=== PATIENT | male | born 1960 | race Caucasian/White ===

== ENCOUNTER 2017-05-07 08:59 | Inpatient (IN) | payer OTHER ==
[2017-05-07 11:53] VITALS: BMI 22.3
--- NOTE | 2017-05-07 13:21 | HP ---
CIWA Score - CIWA Score Nausea/Vomitin Muscle Tremors: 3 Anxiety: 3 Agitation: 3 Paroxysmal Sweats: 2 Orientation: 0-Oriented Tacttile Disturbances: 2-Mild Itch/Numbness/Burn Auditory Disturbances: 2-Mild Harshness/Frighten Visual Disturbances: 2-Mild Sensitivity Headache: 2-Mild CIWA-Ar Total Score: 22 Admission ROS BHS - HPI Chief Complaint: i need help to stop drinking alcohol Allergies/Adverse Reactions: Allergies Allergy/AdvReac Type Severity Reaction Status Date / Time No Known Allergies Allergy Verified 05/07/17 12:48 History of Present Illness: this 56 years old male with alcohol dependence,seeking help to stop drinking, never been in detox before syncope alcohol related nicotine dependence no significant period of sobreity Exam Limitations: No Limitations - Ebola screening Have you been sick,other than usual withdrawal symptoms: No - Review of Systems Constitutional: Loss of Appetite, Malaise, Night Sweats, Changes in sleep, Weakness, Unintentional Wgt. Loss EENT: reports: Tearing, Nose Congestion Respiratory: reports: No Symptoms reported Cardiac: reports: Palpitations GI: reports: Diarrhea, Nausea, Vomiting, Abdominal cramping : reports: No Symptoms Reported Musculoskeletal: reports: Back Pain, Muscle Pain Integumentary: reports: Dryness Neuro: reports: Headache, Tremors Endocrine: reports: No Symptoms Reported Hematology: reports: No Symptoms Reported Psychiatric: reports: Anxious (insomnia), Depressed Patient History - Patient Medical History Hx Anemia: No Hx Asthma: No Hx Chronic Obstructive Pulmonary Disease (COPD): No Hx Cancer: No Hx Cardiac Disorders: No Hx Congestive Heart Failure: No Hx Hypertension: Yes (no med) Hx Hypercholesterolemia: No Hx Pacemaker: No HX Cerebrovascular Accident: No Hx Seizures: No Hx Dementia: No Hx Diabetes: No Hx Gastrointestinal Disorders: Yes (acid reflux) Hx Liver Disease: No Hx Genitourinary Disorders: No Hx Sexually Transmitted Disorders: No Hx Renal Disease (ESRD): No Hx Thyroid Disease: No Hx Human Immunodeficiency Virus (HIV): No (never been tested) Hx Hepatitis C: No Hx Depression: Yes (anxiety) Hx Suicide Attempt: No Hx Bipolar Disorder: No Hx Schizophrenia: No Other Medical History: no suicidal,no homicidal - Patient Surgical History Past Surgical History: No Hx Neurologic Surgery: No Hx Cataract Extraction: No Hx Cardiac Surgery: No Hx Lung Surgery: No Hx Breast Surgery: No Hx Breast Biopsy: No Hx Abdominal Surgery: No Hx Appendectomy: No Hx Cholecystectomy: No Hx Genitourinary Surgery: No Hx Section: No Hx Orthopedic Surgery: No Anesthesia Reaction: No - PPD History Previous Implant?: Yes Documented Results: Negative w/o proof Implanted On Prior [facility] Admission?: No PPD to be Administered?: Yes - Smoking Cessation Smoking history: Current every day smoker Have you smoked in the past 12 months: Yes Aproximately how many cigarettes per day: 3 Cigars Per Day: 1 Hx Chewing Tobacco Use: No Initiated information on smoking cessation: Yes 'Breaking Loose' booklet given: 05/07/17 - Substance & Tx. History Hx Alcohol Use: Yes Hx Substance Use: No Substance Use Type: Alcohol Hx Substance Use Treatment: No - Substances Abused Alcohol-beer Route: Oral Frequency: Daily Amount used: 1-6 pk. Age of first use: 16 Date of Last Use: 05/05/17 Family Disease History - Family Disease History Family History: Denies Admission Physical Exam [facility] - Vital Signs Vital Signs: Vital Signs - 24 hr 05/07/17 11:51 Temperature 97.4 F L Pulse Rate 109 H Respiratory 18 Rate Blood Pressure 142/92 - Physical General Appearance: Yes: Moderate Distress, Tremorous, Irritable, Sweating, Anxious HEENTM: Yes: Hearing grossly Normal, Normal ENT Inspection, RICA Respiratory: Yes: Lungs Clear, Normal Breath Sounds, No Respiratory Distress Neck: Yes: Within Normal Limits, Supple, Trachea in good position Breast: Yes: Within Normal Limits Cardiology: Yes: Tachycardia Abdominal: Yes: Within Normal Limits, Normal Bowel Sounds, Non Tender, Flat, Soft Genitourinary: Yes: Within Normal Limits Back: Yes: Muscle Spasm Musculoskeletal: Yes: Back pain, Muscle Pain Extremities: Yes: Normal Inspection, Normal Range of Motion, Tremors 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, Fully Oriented, Alert, Motor Strength 5/5 Integumentary: Yes: Dry Lymphatic: Yes: Within Normal Limits - Diagnostic (1) Alcohol dependence with uncomplicated withdrawal Current Visit: Yes Status: Acute (2) Syncope Current Visit: Yes Status: Acute (3) Anxiety and depression Current Visit: Yes Status: Acute (4) Insomnia Current Visit: Yes Status: Acute (5) Nicotine dependence Current Visit: Yes Status: Acute Cleared for Admission [facility] - Detox or Rehab [facility] Level of Care: Medically Managed Detox Regimen/Protocol: Librium [facility] Breath Alcohol Content Breath Alcohol Content: 0 Urine Drug Screen - Results Drug Screen Negative: No Urine Drug Screen Results: SCOTT-Cocaine
[2017-05-07] MEDS ORDERED: guaiFENesin/D-METHORPHAN HB 10 ML UNIT-DOSE CUPS PO PRN (13:31)
[2017-05-07] MEDS ORDERED: IBUPROFEN 400 MG TABLET (FP) PO PRN (13:31)
[2017-05-07] MEDS ORDERED: chlordiazePOXIDE HCL 25 MG CAPSULE PO PRN (13:31)
[2017-05-07] MEDS ORDERED: ACETAMINOPHEN 325 MG TABLET (FP) PO PRN (13:31)
[2017-05-07] MEDS ORDERED: hydrOXYzine PAMOATE 50 MG CAPSULE (FP) PO PRN (13:31)
[2017-05-07] MEDS ORDERED: MENTHOL/PHENOL 1 EACH UD MM PRN (13:31)
[2017-05-07] MEDS ORDERED: MAGNESIUM CITRATE 300 ML BOTTLE PO PRN (13:31)
[2017-05-07] MEDS ORDERED: MAGNESIUM HYDROX 2400MG/30ML ORAL SUSPENSION 30 ML CUP PO PRN (13:31)
[2017-05-07] MEDS ORDERED: LOPERAMIDE HCL 2 MG CAPSULE PO PRN (13:31)
[2017-05-07] MEDS ORDERED: P-EPHED 60MG/TRIPROLIDI 2.5MG TABLET PO PRN (13:31)
[2017-05-07] MEDS ORDERED: MAG HYDROX/AL HYDROX/SIMETH 30 ML UNIT-DOSE CUP PO PRN (13:31)
[2017-05-07] MEDS ORDERED: chlordiazePOXIDE HCL 25 MG CAPSULE PO ONE (14:30)
[2017-05-07] MEDS: chlordiazePOXIDE HCL 25 MG CAPSULE PO SCH ×2 (17:10→22:51)
[2017-05-07 17:55] LABS: URINE APPEARANCE CLEAR; URINE BILIRUBIN NEGATIVE (NEGATIVE); URINE BLOOD NEGATIVE (NEGATIVE); URINE COLOR LTYELLOW; URINE GLUCOSE (UA) NEGATIVE (NEGATIVE); URINE KETONE NEGATIVE (NEGATIVE); URINE LEUK ESTERASE NEGATIVE (NEGATIVE); URINE NITRITE NEGATIVE (NEGATIVE); URINE PROTEIN NEGATIVE (NEGATIVE); URINE UROBILINOGEN NEGATIVE mg/dL (0.2-1.0)
[2017-05-07] MEDS: diphenhydrAMINE HCL 50 MG CAPSULE PO PRN (22:51)
[2017-05-07] MEDS: THIAMINE HCL 100 MG TABLET (FP) PO SCH (22:52)
[2017-05-08] MEDS: chlordiazePOXIDE HCL 25 MG CAPSULE PO SCH ×4 (05:29→22:40)
[2017-05-08] MEDS: PRENATAL VITAMINS W/ FOLIC ACID TABLET (FP) PO SCH (11:02)
[2017-05-08 11:07] LABS: MCH 31.6 pg (25.7-33.7); MCHC 33.8 g/dl (32.0-35.9); MEAN CELL VOLUME 93.5 fl (80-96); MEAN PLT VOLUME 8.6 fl (7.5-11.1); PLATELET COUNT 234 K/MM3 (134-434); RDW 14.4 % (11.9-15.9); WHITE BLOOD COUNT 5.9 K/mm3 (4.0-10.0)
[2017-05-08 11:10] LABS: ALBUMIN 4.5 g/dl (3.4-5.0); ALK PHOS 81 U/L (45-117); ANION GAP 9 (8-16); BILIRUBIN,TOTAL 0.8 mg/dL (0.2-1.0); CALCIUM 10.1 mg/dL (8.5-10.1); CO2 28 mmol/L (21-32); CREATININE 0.8 mg/dL (0.7-1.3); GLUCOSE,RANDOM 85 mg/dL (74-106); SGOT/AST 33 U/L (15-37); SGPT/ALT 26 U/L (12-78); TOT PROT 8.1 g/dl (6.4-8.2)
--- NOTE | 2017-05-08 12:37 | PN ---
[facility] CIWA - CIWA Score Nausea/Vomitin Muscle Tremors: 3 Anxiety: 3 Agitation: 2 Paroxysmal Sweats: 1-Minimal Palms Moist Orientation: 0-Oriented Tacttile Disturbances: 1-Very Mild Itch/Numbness Auditory Disturbances: 1-Very Mild Visual Disturbances: 1-Very Mild Sensitivity Headache: 2-Mild CIWA-Ar Total Score: 17 S Progress Note (SOAP) Subjective: alert,irritable,anxious,interrupted sleep,tremor,pain in the body Objective: 05/08/17 12:35 Vital Signs Temperature 98.2 F 05/08/17 09:49 Pulse Rate 85 05/08/17 09:49 Respiratory Rate 20 05/08/17 09:49 Blood Pressure 110/72 05/08/17 09:49 O2 Sat by Pulse Oximetry (%) ekg nsr Laboratory Last Values WBC 5.9 K/mm3 (4.0-10.0) 05/08/17 06:00 RBC 5.22 M/mm3 (4.00-5.60) 05/08/17 06:00 Hgb 16.5 GM/dL (11.7-16.9) 05/08/17 06:00 Hct 48.8 % (35.4-49) 05/08/17 06:00 MCV 93.5 fl (80-96) 05/08/17 06:00 MCH 31.6 pg (25.7-33.7) 05/08/17 06:00 MCHC 33.8 g/dl (32.0-35.9) 05/08/17 06:00 RDW 14.4 % (11.9-15.9) 05/08/17 06:00 Plt Count 234 K/MM3 (134-434) 05/08/17 06:00 MPV 8.6 fl (7.5-11.1) 05/08/17 06:00 Sodium 137 mmol/L (136-145) 05/08/17 06:00 Potassium 4.7 mmol/L (3.5-5.1) 05/08/17 06:00 Chloride 100 mmol/L (98-107) 05/08/17 06:00 Carbon Dioxide 28 mmol/L (21-32) 05/08/17 06:00 Anion Gap 9 (8-16) 05/08/17 06:00 BUN 7 mg/dL (7-18) 05/08/17 06:00 Creatinine 0.8 mg/dL (0.7-1.3) 05/08/17 06:00 Creat Clearance w eGFR > 60 (>60) 05/08/17 06:00 Random Glucose 85 mg/dL (74-106) 05/08/17 06:00 Calcium 10.1 mg/dL (8.5-10.1) 05/08/17 06:00 Total Bilirubin 0.8 mg/dL (0.2-1.0) 05/08/17 06:00 AST 33 U/L (15-37) 05/08/17 06:00 ALT 26 U/L (12-78) 05/08/17 06:00 Alkaline Phosphatase 81 U/L (45-117) 05/08/17 06:00 Total Protein 8.1 g/dl (6.4-8.2) 05/08/17 06:00 Albumin 4.5 g/dl (3.4-5.0) 05/08/17 06:00 Urine Color Ltyellow 05/07/17 15:00 Urine Appearance Clear 05/07/17 15:00 Urine pH 6.0 (5.0-8.0) 05/07/17 15:00 Ur Specific [place] 1.010 (1.005-1.025) 05/07/17 15:00 Urine Protein Negative (NEGATIVE) 05/07/17 15:00 Urine Glucose (UA) Negative (NEGATIVE) 05/07/17 15:00 Urine Ketones Negative (NEGATIVE) 05/07/17 15:00 Urine Blood Negative (NEGATIVE) 05/07/17 15:00 Urine Nitrite Negative (NEGATIVE) 05/07/17 15:00 Urine Bilirubin Negative (NEGATIVE) 05/07/17 15:00 Urine Urobilinogen Negative mg/dL (0.2-1.0) 05/07/17 15:00 Ur Leukocyte Esterase Negative (NEGATIVE) 05/07/17 15:00 Assessment: 05/08/17 12:37 withdrawal symptom Plan: continue detox
--- NOTE | 2017-05-08 15:10 | CONSULT ---
[facility] Psychiatric Consult - Data Date of interview: 05/08/17 Admission source: [facility] Identifying data: First admission to 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 Substance Abuse History: Alcohol abuse since age 16 (beer).Occasional smoking.Tox screen is positive for cocaine. Medical History: Hypertension and GERD. Psychiatric History: Patient denies. Physical/Sexual Abuse/Trauma History: Patient denies. Additional Comment: Urine Drug Screen Results: SCOTT-Cocaine.Noted. Mental Status Exam - Mental Status Exam Alert and Oriented to: Time, Place, Person Cognitive Function: Good Patient Appearance: Well Groomed Mood: Hopeful, Euthymic Affect: Appropriate, Normal Range Patient Behavior: Fatigued, Appropriate, Cooperative Speech Pattern: Clear, Appropriate Voice Loudness: Normal Thought Process: Intact, Goal Oriented Thought Disorder: Not Present Hallucinations: Denies Suicidal Ideation: Denies Homicidal Ideation: Denies Insight/Judgement: Poor Sleep: Well Appetite: Good Muscle strength/Tone: Normal Gait/Station: Normal Psychiatric Findings - Problem List ([place] 1, 2,3) (1) Alcohol dependence with uncomplicated withdrawal Current Visit: Yes Status: Acute (2) Nicotine dependence Current Visit: Yes Status: Acute (3) Cocaine abuse Current Visit: Yes Status: Acute (4) Insomnia Current Visit: Yes Status: Acute - Initial Treatment Plan Initial Treatment Plan: Psychoeducation.Detoxification.Sleep hygiene is discussed with the patient.Ambien 10 mg po hs prn.Patient made aware of potential for parasomnias.Agreable with this careplan.Observation.
[2017-05-08] MEDS: THIAMINE HCL 100 MG TABLET (FP) PO SCH (22:40)
[2017-05-08] MEDS: diphenhydrAMINE HCL 50 MG CAPSULE PO PRN (22:41)
[2017-05-09] MEDS: chlordiazePOXIDE HCL 25 MG CAPSULE PO SCH ×2 (05:50→10:45)
[2017-05-09] MEDS: PRENATAL VITAMINS W/ FOLIC ACID TABLET (FP) PO SCH (10:45)
--- NOTE | 2017-05-09 11:06 | PN ---
S CIWA - CIWA Score Nausea/Vomitin Muscle Tremors: 3 Anxiety: 3 Agitation: 2 Paroxysmal Sweats: 1-Minimal Palms Moist Orientation: 0-Oriented Tacttile Disturbances: 1-Very Mild Itch/Numbness Auditory Disturbances: 1-Very Mild Visual Disturbances: 1-Very Mild Sensitivity Headache: 2-Mild CIWA-Ar Total Score: 17 BHS COWS - Scale Resting Pulse: 0= [place] 80 or Below Sweatin= Chills/Flushing Restless Observation: 3= Extraneous Movement Pupil Size: 1= Pupils >than Normal Bone or Joint Aches: 2= Severe Diffuse Aches Runny Nose/ Eye Tearin= Runny Nose/Eyes GI Upset > 30mins: 2= Nausea/Diarrhea Tremor Observation of Outstretched Hands: 2= Slight Tremor Visible Yawning Observation: 1= 1-2x During Session Anxiety or Irritability: 2=Irritable/Anxious Goose Flesh Skin: 0=Smooth Skin COWS Score: 16 S Progress Note (SOAP) Subjective: ALERT,IRRITABLE,ANXIOUS,INTERRUPTED SLEEP,PAIN IN THE BODY Objective: 05/09/17 11:05 Vital Signs Temperature 98.1 F 05/09/17 10:00 Pulse Rate 76 05/09/17 10:00 Respiratory Rate 18 05/09/17 10:00 Blood Pressure 107/79 05/09/17 10:00 O2 Sat by Pulse Oximetry (%) Laboratory Last Values WBC 5.9 K/mm3 (4.0-10.0) 05/08/17 06:00 RBC 5.22 M/mm3 (4.00-5.60) 05/08/17 06:00 Hgb 16.5 GM/dL (11.7-16.9) 05/08/17 06:00 Hct 48.8 % (35.4-49) 05/08/17 06:00 MCV 93.5 fl (80-96) 05/08/17 06:00 MCH 31.6 pg (25.7-33.7) 05/08/17 06:00 MCHC 33.8 g/dl (32.0-35.9) 05/08/17 06:00 RDW 14.4 % (11.9-15.9) 05/08/17 06:00 Plt Count 234 K/MM3 (134-434) 05/08/17 06:00 MPV 8.6 fl (7.5-11.1) 05/08/17 06:00 Sodium 137 mmol/L (136-145) 05/08/17 06:00 Potassium 4.7 mmol/L (3.5-5.1) 05/08/17 06:00 Chloride 100 mmol/L (98-107) 05/08/17 06:00 Carbon Dioxide 28 mmol/L (21-32) 05/08/17 06:00 Anion Gap 9 (8-16) 05/08/17 06:00 BUN 7 mg/dL (7-18) 05/08/17 06:00 Creatinine 0.8 mg/dL (0.7-1.3) 05/08/17 06:00 Creat Clearance w eGFR > 60 (>60) 05/08/17 06:00 Random Glucose 85 mg/dL (74-106) 05/08/17 06:00 Calcium 10.1 mg/dL (8.5-10.1) 05/08/17 06:00 Total Bilirubin 0.8 mg/dL (0.2-1.0) 05/08/17 06:00 AST 33 U/L (15-37) 05/08/17 06:00 ALT 26 U/L (12-78) 05/08/17 06:00 Alkaline Phosphatase 81 U/L (45-117) 05/08/17 06:00 Total Protein 8.1 g/dl (6.4-8.2) 05/08/17 06:00 Albumin 4.5 g/dl (3.4-5.0) 05/08/17 06:00 Urine Color Ltyellow 05/07/17 15:00 Urine Appearance Clear 05/07/17 15:00 Urine pH 6.0 (5.0-8.0) 05/07/17 15:00 Ur Specific [place] 1.010 (1.005-1.025) 05/07/17 15:00 Urine Protein Negative (NEGATIVE) 05/07/17 15:00 Urine Glucose (UA) Negative (NEGATIVE) 05/07/17 15:00 Urine Ketones Negative (NEGATIVE) 05/07/17 15:00 Urine Blood Negative (NEGATIVE) 05/07/17 15:00 Urine Nitrite Negative (NEGATIVE) 05/07/17 15:00 Urine Bilirubin Negative (NEGATIVE) 05/07/17 15:00 Urine Urobilinogen Negative mg/dL (0.2-1.0) 05/07/17 15:00 Ur Leukocyte Esterase Negative (NEGATIVE) 05/07/17 15:00 RPR Titer Nonreactive (NONREACTIVE) 05/08/17 06:00 Assessment: 05/09/17 11:06 WITHDRAWAL SYMPTOM Plan: CONTINUE DETOX
[2017-05-09] MEDS: chlordiazePOXIDE 5 MG CAPSULE PO SCH ×2 (17:15→22:28)
[2017-05-09] MEDS: THIAMINE HCL 100 MG TABLET (FP) PO SCH (22:28)
[2017-05-09] MEDS: ZOLPIDEM TARTRATE 5 MG TABLET PO PRN (22:28)
[2017-05-10] MEDS: chlordiazePOXIDE 5 MG CAPSULE PO SCH ×2 (05:56→11:18)
--- NOTE | 2017-05-10 10:41 | PN ---
S Progress Note (SOAP) Subjective: ALERT,IRRITABLE,ANXIOUS,INTERRUPTED SLEEP Objective: 05/10/17 10:39 Vital Signs Temperature 98.6 F 05/10/17 10:00 Pulse Rate 81 05/10/17 10:00 Respiratory Rate 16 05/10/17 10:00 Blood Pressure 114/79 05/10/17 10:00 O2 Sat by Pulse Oximetry (%) Assessment: 05/10/17 10:40 WITHDRAWAL SYMPTOM Plan: CONTINUE DETOX,DISCHARGE IN AM
[2017-05-10] MEDS: PRENATAL VITAMINS W/ FOLIC ACID TABLET (FP) PO SCH (11:18)
--- NOTE | 2017-05-10 12:03 | EKG ---
Test Reason : Blood Pressure : / mmHG Vent. Rate : 081 BPM Atrial Rate : 081 BPM P-R Int : 150 ms QRS Dur : 088 ms QT Int : 360 ms P-R-T Axes : 031 -07 060 degrees QTc Int : 418 ms NORMAL SINUS RHYTHM NORMAL ECG NO PREVIOUS ECGS AVAILABLE Confirmed by JUN SKINNER MD ([id number]) on 05/10/2017 12:03:42 PM Referred By: Chacorta Armstrong Confirmed By:JUN SKINNER MD
[2017-05-10] MEDS: chlordiazePOXIDE HCL 10 MG CAPSULE PO SCH ×2 (17:44→22:17)
[2017-05-10 17:54] VITALS: TEMP 97.7
[2017-05-10] MEDS: THIAMINE HCL 100 MG TABLET (FP) PO SCH (22:17)
[2017-05-10] MEDS: ZOLPIDEM TARTRATE 5 MG TABLET PO PRN (22:17)
[2017-05-11] MEDS: chlordiazePOXIDE HCL 10 MG CAPSULE PO SCH (06:01)
[2017-05-11 06:07] VITALS: BP 110/68; PULSE 75
--- NOTE | 2017-05-11 09:02 | DS ---
[facility] Detox Discharge Summary Admission Date: 05/07/17 Discharge Date: 05/11/17 - History Present History: Alcohol Dependence Additional Comments: FOLLOW UP WITH AFTER CARE PROGRAM ARRANGEMENT Pertinent Past History: INSOMNIA ANXIETY AND DEPRESSION NICOTINE DEPENDENCE - Physical Exam Results Vital Signs: Vital Signs Temperature 97.7 F 05/11/17 06:00 Pulse Rate 75 05/11/17 06:00 Respiratory Rate 16 05/11/17 06:00 Blood Pressure 110/68 05/11/17 06:00 O2 Sat by Pulse Oximetry (%) Pertinent Admission Physical Exam Findings: WITHDRAWAL SYMPTOM - Treatment Hospital Course: Detox Protocol Followed, Detoxed Safely, Responded well, Discharged Condition Good, Rehab Referral Accepted Patient has Accepted a Rehab Referral to: [facility] - Medication Discharge Medications: Ambulatory Orders NK [No Known Home Medication] 05/07/17 - Diagnosis (1) Alcohol dependence with uncomplicated withdrawal Current Visit: Yes Status: Acute (2) Syncope Current Visit: Yes Status: Acute (3) Anxiety and depression Current Visit: Yes Status: Acute (4) Insomnia Current Visit: Yes Status: Acute (5) Nicotine dependence Current Visit: Yes Status: Acute - AMA Did Patient Leave Against Medical Advice: No
== END 2017-05-11 09:27 | disposition home or self-care (01) | DRG 774 ==
LOC: YASAS 08:59 → Y6N 13:56
PROVIDERS: ADMIT Internal Medicine Addiction Medicine; ATTEND Internal Medicine Addiction Medicine
PROC: HZ2ZZZZ Detoxification Services for Substance Abuse Treatment (ICD-10-PCS; principal; 2017-05-11)
DX: F10.230 Alcohol dependence with withdrawal, uncomplicated (principal); F17.210 Nicotine dependence, cigarettes, uncomplicated; F14.10 Cocaine abuse, uncomplicated; F41.8 Other specified anxiety disorders; G47.00 Insomnia, unspecified; Z59.0 Homelessness
CPT/HCPCS: 36415; 80053; 81003; 85027; 86593; 93005; 93010

== ENCOUNTER 2017-06-14 13:01 | Inpatient (IN) | payer OTHER ==
[2017-06-14 14:55] VITALS: BMI 20.9
--- NOTE | 2017-06-14 17:46 | HP ---
CIWA Score - CIWA Score Nausea/Vomitin-Mild Nausea/No Vomiting Muscle Tremors: 4-Moderate,w/Arms Extend Anxiety: 4-Mod. Anxious/Guarded Agitation: 4-Moderately Restless Paroxysmal Sweats: 1-Minimal Palms Moist Orientation: 0-Oriented Tacttile Disturbances: 0-None Auditory Disturbances: 0-None Visual Disturbances: 0-None Headache: 1-Very Mild CIWA-Ar Total Score: 15 Admission ROS BHS - HPI Chief Complaint: withdrawal sx Allergies/Adverse Reactions: Allergies Allergy/AdvReac Type Severity Reaction Status Date / Time No Known Allergies Allergy Verified 06/14/17 17:03 History of Present Illness: 56 years old male with long history of alcohol nicotine dependence has gerd weight loss and depression is admitted to detox Exam Limitations: No Limitations - Ebola screening Have you traveled outside of the country in the last 21 days: No Have you had contact with anyone from an Ebola affected area: No Have you been sick,other than usual withdrawal symptoms: No Do you have a fever: No - Review of Systems Constitutional: Loss of Appetite, Changes in sleep, Unintentional Wgt. Loss, Unexplained wgt Loss EENT: reports: Blurred Vision (eye glasses), Hearing Loss (right ear since ), Dental Problems (few teeth missing) Respiratory: reports: No Symptoms reported Cardiac: reports: No Symptoms Reported GI: reports: Nausea, Poor Appetite, Poor Fluid Intake, Indigestion, Abdominal cramping : reports: No Symptoms Reported Musculoskeletal: reports: Joint Pain (right shoulder pain from "work injury"), Muscle Pain (chest wall muscle) Integumentary: reports: No Symptoms Reported Neuro: reports: Tremors Endocrine: reports: No Symptoms Reported Hematology: reports: No Symptoms Reported Psychiatric: reports: Judgement Intact, Orientated x3, Depressed Other Systems: Reviewed and Negative Patient History - Patient Medical History Hx Anemia: No Hx Asthma: No Hx Chronic Obstructive Pulmonary Disease (COPD): No Hx Cancer: No Hx Cardiac Disorders: No Hx Congestive Heart Failure: No Hx Hypertension: Yes (no med) Hx Hypercholesterolemia: No Hx Pacemaker: No HX Cerebrovascular Accident: No Hx Seizures: No Hx Dementia: No Hx Diabetes: No Hx Gastrointestinal Disorders: Yes (acid reflux) Hx Liver Disease: No Hx Genitourinary Disorders: No Hx Sexually Transmitted Disorders: No Hx Renal Disease (ESRD): No Hx Thyroid Disease: No Hx Human Immunodeficiency Virus (HIV): No (never been tested) Hx Hepatitis C: No Hx Depression: Yes (anxiety) Hx Suicide Attempt: Yes (2016 overdose) Hx Bipolar Disorder: No Hx Schizophrenia: No - Patient Surgical History Past Surgical History: Yes Hx Neurologic Surgery: No Hx Cataract Extraction: No Hx Cardiac Surgery: No Hx Lung Surgery: No Hx Breast Surgery: No Hx Breast Biopsy: No Hx Abdominal Surgery: No Hx Appendectomy: No Hx Cholecystectomy: No Hx Genitourinary Surgery: No Hx Orthopedic Surgery: No Other Surgical History: right ear at childhood Anesthesia Reaction: No - PPD History Previous Implant?: Yes Documented Results: Negative w/proof Implanted On Prior [facility] Admission?: Yes Date: 05/09/17 PPD to be Administered?: No - Smoking Cessation Smoking history: Former smoker Have you smoked in the past 12 months: No Aproximately how many cigarettes per day: 0 Cigars Per Day: 1 Hx Chewing Tobacco Use: No Initiated information on smoking cessation: Yes 'Breaking Loose' booklet given: 06/14/17 - Substance & Tx. History Hx Alcohol Use: Yes Hx Substance Use: No Substance Use Type: Alcohol Hx Substance Use Treatment: Yes (05/07-05/11/17 [facility]) - Substances Abused Alcohol Route: Oral Frequency: Daily Amount used: 1 SIX PACK Age of first use: 17 Date of Last Use: 06/13/17 Family Disease History - Family Disease History Family Disease History: Heart Disease: Grandparent, [place]: Mother, Other: Father ( no contact), Mother Admission Physical Exam BHS - Vital Signs Vital Signs: Vital Signs - 24 hr 06/14/17 14:52 Temperature 97.6 F Pulse Rate 110 H Respiratory 16 Rate Blood Pressure 141/84 - Physical General Appearance: Yes: Appropriately Dressed, Mild Distress, Thin, Tremorous, Irritable, Sweating, Anxious HEENTM: Yes: Hearing grossly Normal, Normal ENT Inspection, Normocephalic, Normal Voice Respiratory: Yes: Chest Non-Tender, Lungs Clear, Normal Breath Sounds, No Respiratory Distress, No Accessory Muscle Use Neck: Yes: Supple, Trachea in good position Breast: Yes: Breasts Symetrical Cardiology: Yes: Regular Rhythm, S1, S2, Tachycardia Abdominal: Yes: Non Tender, Soft Genitourinary: Yes: Within Normal Limits Back: Yes: Normal Inspection Musculoskeletal: Yes: full range of Motion, Gait Steady Extremities: Yes: Normal Inspection, Normal Range of Motion, Non-Tender, Tremors Neurological: Yes: Fully Oriented, Alert, Motor Strength 5/5, Normal Response, Depressed Affect Integumentary: Yes: Warm Lymphatic: Yes: Within Normal Limits - Diagnostic (1) Alcohol dependence with uncomplicated withdrawal Current Visit: Yes Status: Acute (2) Nicotine dependence Current Visit: Yes Status: Acute Qualifiers: Nicotine product type: cigarettes Substance use status: in withdrawal Qualified Code(s): F17.213 - Nicotine dependence, cigarettes, with withdrawal (3) GERD (gastroesophageal reflux disease) Current Visit: Yes Status: Chronic Qualifiers: Esophagitis presence: without esophagitis Qualified Code(s): K21.9 - Gastro-esophageal reflux disease without esophagitis (4) Weight loss Current Visit: Yes Status: Acute (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
[2017-06-14] MEDS ORDERED: MAGNESIUM CITRATE 300 ML BOTTLE PO PRN (17:51)
[2017-06-14] MEDS ORDERED: MENTHOL/PHENOL 1 EACH UD MM PRN (17:51)
[2017-06-14] MEDS ORDERED: NICOTINE POLACRILEX 2 MG GUM BC PRN (17:51)
[2017-06-14] MEDS ORDERED: P-EPHED 60MG/TRIPROLIDI 2.5MG TABLET PO PRN (17:51)
[2017-06-14] MEDS ORDERED: MAG HYDROX/AL HYDROX/SIMETH 30 ML UNIT-DOSE CUP PO PRN (17:51)
[2017-06-14] MEDS ORDERED: LOPERAMIDE HCL 2 MG CAPSULE PO PRN (17:51)
[2017-06-14] MEDS ORDERED: MAGNESIUM HYDROX 2400MG/30ML ORAL SUSPENSION 30 ML CUP PO PRN (17:51)
[2017-06-14] MEDS ORDERED: chlordiazePOXIDE HCL 25 MG CAPSULE PO PRN (17:51)
[2017-06-14] MEDS ORDERED: hydrOXYzine PAMOATE 50 MG CAPSULE (FP) PO PRN (17:51)
[2017-06-14] MEDS ORDERED: guaiFENesin/D-METHORPHAN HB 10 ML UNIT-DOSE CUPS PO PRN (17:51)
[2017-06-14] MEDS ORDERED: ACETAMINOPHEN 325 MG TABLET (FP) PO PRN (17:51)
[2017-06-14] MEDS ORDERED: diphenhydrAMINE HCL 50 MG CAPSULE PO PRN (17:51)
[2017-06-14] MEDS: CYCLOBENZAPRINE HCL 10 MG TABLET (FP) PO SCH (19:47)
[2017-06-14 21:00] LABS: URINE APPEARANCE CLEAR; URINE BILIRUBIN NEGATIVE (NEGATIVE); URINE BLOOD NEGATIVE (NEGATIVE); URINE COLOR LTYELLOW; URINE GLUCOSE (UA) NEGATIVE (NEGATIVE); URINE KETONE NEGATIVE (NEGATIVE); URINE LEUK ESTERASE NEGATIVE (NEGATIVE); URINE NITRITE NEGATIVE (NEGATIVE); URINE PROTEIN NEGATIVE (NEGATIVE); URINE UROBILINOGEN NEGATIVE mg/dL (0.2-1.0)
[2017-06-14] MEDS: THIAMINE HCL 100 MG TABLET (FP) PO SCH (22:33)
[2017-06-14] MEDS: chlordiazePOXIDE HCL 25 MG CAPSULE PO SCH (22:34)
[2017-06-14] MEDS: RANITIDINE HCL 150 MG TABLET (FP) PO SCH (22:34)
[2017-06-15] MEDS: CYCLOBENZAPRINE HCL 10 MG TABLET (FP) PO SCH ×2 (05:48→12:36)
[2017-06-15] MEDS: chlordiazePOXIDE HCL 25 MG CAPSULE PO SCH ×4 (05:48→22:27)
[2017-06-15 10:08] LABS: MCH 31.2 pg (25.7-33.7); MCHC 33.4 g/dl (32.0-35.9); MEAN CELL VOLUME 93.3 fl (80-96); MEAN PLT VOLUME 8.4 fl (7.5-11.1); PLATELET COUNT 220 K/MM3 (134-434); RDW 14.3 % (11.9-15.9); WHITE BLOOD COUNT 5.2 K/mm3 (4.0-10.0)
[2017-06-15] MEDS: PRENATAL VITAMINS W/ FOLIC ACID TABLET (FP) PO SCH (10:35)
[2017-06-15] MEDS: NICOTINE 14 MG/24 HOURS TOPICAL PATCH TD SCH (10:35)
[2017-06-15] MEDS: RANITIDINE HCL 150 MG TABLET (FP) PO SCH ×2 (10:35→22:27)
[2017-06-15] MEDS ORDERED: ONDANSETRON *ODT* 4 MG TABLET SL PRN (11:01)
--- NOTE | 2017-06-15 11:01 | PN ---
S CIWA - CIWA Score Nausea/Vomitin-Mild Nausea/No Vomiting Muscle Tremors: 4-Moderate,w/Arms Extend Anxiety: 3 Agitation: 3 Paroxysmal Sweats: 3 Orientation: 0-Oriented Tacttile Disturbances: 0-None Auditory Disturbances: 0-None Visual Disturbances: 0-None Headache: 0-None Present CIWA-Ar Total Score: 14 S Progress Note (SOAP) Subjective: tired sweats shakes agitation nausea Objective: 06/15/17 11:00 Vital Signs Temperature 97.5 F L 06/15/17 10:32 Pulse Rate 90 06/15/17 10:32 Respiratory Rate 16 06/15/17 10:32 Blood Pressure 129/90 06/15/17 10:32 O2 Sat by Pulse Oximetry (%) Laboratory Tests 06/14/17 06/15/17 20:47 07:00 WBC 5.2 RBC 4.99 Hgb 15.6 Hct 46.5 MCV 93.3 MCH 31.2 MCHC 33.4 RDW 14.3 Plt Count 220 MPV 8.4 Urine Color Ltyellow Urine Appearance Clear Urine pH 6.0 Ur Specific [place] 1.015 Urine Protein Negative Urine Glucose (UA) Negative Urine Ketones Negative Urine Blood Negative Urine Nitrite Negative Urine Bilirubin Negative Urine Urobilinogen Negative Ur Leukocyte Esterase Negative labs pending awake/alert ambulating no acute distress Assessment: 06/15/17 11:01 withdrawal sx Plan: continue detox increase fluids labs pending lynn cortésn
[2017-06-15 11:05] LABS: ALBUMIN 3.8 g/dl (3.4-5.0); ALK PHOS 61 U/L (45-117); ANION GAP 6 (8-16); BILIRUBIN,TOTAL 0.7 mg/dL (0.2-1.0); CALCIUM 9.5 mg/dL (8.5-10.1); CO2 29 mmol/L (21-32); CREATININE 0.7 mg/dL (0.7-1.3); GLUCOSE,RANDOM 85 mg/dL (74-106); SGOT/AST 25 U/L (15-37); SGPT/ALT 24 U/L (12-78); TOT PROT 6.9 g/dl (6.4-8.2)
[2017-06-15] MEDS: CYCLOBENZAPRINE HCL 10 MG TABLET (FP) PO PRN ×2 (12:34→22:27)
--- NOTE | 2017-06-15 14:48 | CONSULT ---
[facility] Psychiatric Consult - Data Date of interview: 06/15/17 Admission source: [facility] Identifying data: Readmission to [facility] for this 56 y/o male seeking detox treatment on for alcohol dependence.Patient is single without children,homeless,unemployed but and supported on food stamps ([facility] benefits in process). Substance Abuse History: Confirmed by patient. Smoking Cessation. Smoking history: Former smoker. Have you smoked in the past 12 months: No. Aproximately how many cigarettes per day: 0. Cigars Per Day: 1. Hx Chewing Tobacco Use: No. Initiated information on smoking cessation: Yes. 'Breaking Loose' booklet given: 06/14/17. - Substance & Tx. History. Hx Alcohol Use: Yes. Hx Substance Use: No. Substance Use Type: Alcohol. Hx Substance Use Treatment: Yes ([facility]07[facility]05/11/17 [facility] - Substances Abused. Alcohol. Route: Oral. Frequency: Daily. Amount used: 1 SIX PACK. Age of first use: 17. Date of Last Use: 06/13/17 Medical History: GERD and hypertension. Psychiatric History: Patient denies history of psychiatric hospitalizations.Seen recently for intake at [facility] and prescribed " a low dose of sertaline " as per patient.Diagnosed with MDD.Scripts not fliied out ( medication never taken).Mr Kirill admits to an overdose with Advil two years ago (deliberate). Physical/Sexual Abuse/Trauma History: No reported history of sexual abuse. Additional Comment: Drug Screen is negative. Mental Status Exam - Mental Status Exam Alert and Oriented to: Time, Place, Person Cognitive Function: Good Patient Appearance: Unkempt, Disheveled Mood: Nervous, Withdrawn, Anxious Affect: Mood Congruent Patient Behavior: Appropriate, Cooperative Speech Pattern: Clear Voice Loudness: Normal Thought Process: Intact, Goal Oriented Thought Disorder: Not Present Hallucinations: Denies Suicidal Ideation: Denies Homicidal Ideation: Denies Insight/Judgement: Poor Sleep: Poorly, Difficulty falling asleep Appetite: Poor, Weight loss Muscle strength/Tone: Normal Gait/Station: Normal Psychiatric Findings - Problem List (Lamar 1, 2,3) (1) Alcohol dependence with uncomplicated withdrawal Current Visit: Yes Status: Acute (2) Nicotine dependence Current Visit: Yes Status: Acute Qualifiers: Nicotine product type: cigarettes Substance use status: in withdrawal Qualified Code(s): F17.213 - Nicotine dependence, cigarettes, with withdrawal (3) Alcohol-induced mood disorder Current Visit: Yes Status: Chronic (4) Depressive disorder Current Visit: Yes Status: Acute (5) Weight loss Current Visit: Yes Status: Chronic (6) Deafness in right ear Current Visit: Yes Status: Chronic (7) GERD (gastroesophageal reflux disease) Current Visit: Yes Status: Chronic Qualifiers: Esophagitis presence: without esophagitis Qualified Code(s): K21.9 - Gastro-esophageal reflux disease without esophagitis (8) Insomnia Current Visit: No Status: Acute - Initial Treatment Plan Initial Treatment Plan: Psychoeducation.Detoxification.Ambien 10 mg po hs + zoloft 25 mg po daily.Side effects/benfits discussed with the patient.He agrees with this careplan.Observation.
[2017-06-15] MEDS: THIAMINE HCL 100 MG TABLET (FP) PO SCH (22:27)
[2017-06-15] MEDS: ZOLPIDEM TARTRATE 10 MG TABLET (PARK CARE ONLY) PO PRN (22:27)
[2017-06-16] MEDS: chlordiazePOXIDE HCL 25 MG CAPSULE PO SCH ×3 (05:50→17:18)
[2017-06-16] MEDS: PRENATAL VITAMINS W/ FOLIC ACID TABLET (FP) PO SCH (10:18)
[2017-06-16] MEDS: RANITIDINE HCL 150 MG TABLET (FP) PO SCH ×2 (10:18→22:29)
[2017-06-16] MEDS: SERTRALINE HCL 25 MG TABLET (FP) PO SCH (10:19)
[2017-06-16] MEDS: NICOTINE 14 MG/24 HOURS TOPICAL PATCH TD SCH (10:22)
--- NOTE | 2017-06-16 10:34 | PN ---
[facility] CIWA - CIWA Score Nausea/Vomitin-No Nausea/No Vomiting Muscle Tremors: 4-Moderate,w/Arms Extend Anxiety: 2 Agitation: 3 Paroxysmal Sweats: 3 Orientation: 0-Oriented Tacttile Disturbances: 0-None Auditory Disturbances: 0-None Visual Disturbances: 0-None Headache: 0-None Present CIWA-Ar Total Score: 12 S Progress Note (SOAP) Subjective: sweats mild shakes interrupted sleep anxious Objective: 06/16/17 10:33 Vital Signs Temperature 99.0 F 06/16/17 10:09 Pulse Rate 86 06/16/17 10:09 Respiratory Rate 18 06/16/17 10:09 Blood Pressure 99/72 06/16/17 10:09 O2 Sat by Pulse Oximetry (%) Laboratory Tests 06/14/17 06/15/17 06/15/17 20:47 07:00 07:00 WBC 5.2 RBC 4.99 Hgb 15.6 Hct 46.5 MCV 93.3 MCH 31.2 MCHC 33.4 RDW 14.3 Plt Count 220 MPV 8.4 Sodium 139 Potassium 4.3 Chloride 104 Carbon Dioxide 29 Anion Gap 6 L BUN 7 Creatinine 0.7 Creat Clearance w eGFR > 60 Random Glucose 85 Calcium 9.5 Total Bilirubin 0.7 AST 25 D ALT 24 Alkaline Phosphatase 61 D Total Protein 6.9 Albumin 3.8 Urine Color Ltyellow Urine Appearance Clear Urine pH 6.0 Ur Specific Doss 1.015 Urine Protein Negative Urine Glucose (UA) Negative Urine Ketones Negative Urine Blood Negative Urine Nitrite Negative Urine Bilirubin Negative Urine Urobilinogen Negative Ur Leukocyte Esterase Negative RPR Titer 06/15/17 07:00 WBC RBC Hgb Hct MCV MCH MCHC RDW Plt Count MPV Sodium Potassium Chloride Carbon Dioxide Anion Gap BUN Creatinine Creat Clearance w eGFR Random Glucose Calcium Total Bilirubin AST ALT Alkaline Phosphatase Total Protein Albumin Urine Color Urine Appearance Urine pH Ur Specific Doss Urine Protein Urine Glucose (UA) Urine Ketones Urine Blood Urine Nitrite Urine Bilirubin Urine Urobilinogen Ur Leukocyte Esterase RPR Titer Nonreactive awake/alert ambulating no acute distress Assessment: 06/16/17 10:33 withdrawal sx Plan: continue detox increase fluids
[2017-06-16] MEDS: CYCLOBENZAPRINE HCL 10 MG TABLET (FP) PO PRN (22:29)
[2017-06-16] MEDS: ZOLPIDEM TARTRATE 10 MG TABLET (PARK CARE ONLY) PO PRN (22:29)
[2017-06-16] MEDS: THIAMINE HCL 100 MG TABLET (FP) PO SCH (22:29)
[2017-06-16] MEDS: chlordiazePOXIDE 5 MG CAPSULE PO SCH (22:29)
[2017-06-17] MEDS: chlordiazePOXIDE 5 MG CAPSULE PO SCH ×3 (05:19→18:26)
[2017-06-17] MEDS: SERTRALINE HCL 25 MG TABLET (FP) PO SCH (10:18)
[2017-06-17] MEDS: NICOTINE 14 MG/24 HOURS TOPICAL PATCH TD SCH (10:18)
[2017-06-17] MEDS: PRENATAL VITAMINS W/ FOLIC ACID TABLET (FP) PO SCH (10:18)
[2017-06-17] MEDS: RANITIDINE HCL 150 MG TABLET (FP) PO SCH ×2 (10:18→22:39)
--- NOTE | 2017-06-17 10:33 | PN ---
[facility] Progress Note (SOAP) Subjective: little sweats feeling better little anxious Objective: 06/17/17 10:32 Vital Signs Temperature 97.3 F L 06/17/17 09:37 Pulse Rate 82 06/17/17 09:37 Respiratory Rate 16 06/17/17 09:37 Blood Pressure 100/73 06/17/17 09:37 O2 Sat by Pulse Oximetry (%) awake/alert ambulating no acute distress Assessment: 06/17/17 10:32 mild withdrawal sx Plan: continue detox increase fluids d/c in am
--- NOTE | 2017-06-17 11:36 | EKG ---
Test Reason : Blood Pressure : / mmHG Vent. Rate : 093 BPM Atrial Rate : 093 BPM P-R Int : 152 ms QRS Dur : 090 ms QT Int : 354 ms P-R-T Axes : 068 000 066 degrees QTc Int : 440 ms NORMAL SINUS RHYTHM NORMAL ECG WHEN COMPARED WITH ECG OF 07-MAY-2017 14:06, NO SIGNIFICANT CHANGE WAS FOUND Confirmed by JUN SKINNER MD ([id number]) on 06/17/2017 11:35:41 AM Referred By: Confirmed By:JUN SKINNER MD
[2017-06-17] MEDS: CYCLOBENZAPRINE HCL 10 MG TABLET (FP) PO PRN (22:39)
[2017-06-17] MEDS: THIAMINE HCL 100 MG TABLET (FP) PO SCH (22:39)
[2017-06-17] MEDS: ZOLPIDEM TARTRATE 10 MG TABLET (PARK CARE ONLY) PO PRN (22:39)
[2017-06-17] MEDS: chlordiazePOXIDE HCL 10 MG CAPSULE PO SCH (22:39)
[2017-06-18] MEDS: chlordiazePOXIDE HCL 10 MG CAPSULE PO SCH ×2 (05:51→10:23)
[2017-06-18] MEDS ORDERED: chlordiazePOXIDE 5 MG CAPSULE ONE (09:22)
--- NOTE | 2017-06-18 10:05 | DS ---
[facility] Detox Discharge Summary Admission Date: 06/14/17 Discharge Date: 06/18/17 - History Present History: Alcohol Dependence, Cocaine Dependence - Physical Exam Results Vital Signs: Vital Signs Temperature 97.5 F L 06/18/17 06:00 Pulse Rate 84 06/18/17 06:00 Respiratory Rate 18 06/18/17 06:00 Blood Pressure 102/76 06/18/17 06:00 O2 Sat by Pulse Oximetry (%) - Treatment Hospital Course: Detox Protocol Followed, Detoxed Safely, Responded well, Discharged Condition Good, Rehab Referral Accepted - Medication Discharge Medications: Ambulatory Orders Sertraline HCl [Zoloft -] 25 mg PO DAILY 06/14/17 Sertraline HCl [Zoloft -] 25 mg PO DAILY #30 tablet 06/15/17 - Diagnosis (1) Nicotine dependence Current Visit: Yes Status: Chronic Qualifiers: Nicotine product type: cigarettes Substance use status: uncomplicated Qualified Code(s): F17.210 - Nicotine dependence, cigarettes, uncomplicated (2) Weight loss Current Visit: Yes Status: Chronic (3) GERD (gastroesophageal reflux disease) Current Visit: Yes Status: Chronic Qualifiers: Esophagitis presence: without esophagitis Qualified Code(s): K21.9 - Gastro-esophageal reflux disease without esophagitis (4) Cocaine abuse Current Visit: Yes Status: Chronic - AMA Did Patient Leave Against Medical Advice: No
[2017-06-18] MEDS: PRENATAL VITAMINS W/ FOLIC ACID TABLET (FP) PO SCH (10:22)
[2017-06-18] MEDS: NICOTINE 14 MG/24 HOURS TOPICAL PATCH TD SCH (10:22)
[2017-06-18] MEDS: RANITIDINE HCL 150 MG TABLET (FP) PO SCH (10:22)
[2017-06-18] MEDS: SERTRALINE HCL 25 MG TABLET (FP) PO SCH (10:24)
[2017-06-18 15:30] VITALS: BP 100/69; PULSE 86; TEMP 97.7
== END 2017-06-18 15:45 | disposition other institution (70) | DRG 775 ==
LOC: YASAS 13:01 → Y6N 18:35
PROVIDERS: ADMIT Internal Medicine Addiction Medicine; ATTEND Internal Medicine Addiction Medicine
PROC: HZ2ZZZZ Detoxification Services for Substance Abuse Treatment (ICD-10-PCS; principal; 2017-06-18)
DX: F10.230 Alcohol dependence with withdrawal, uncomplicated (principal); F17.210 Nicotine dependence, cigarettes, uncomplicated; F19.24 Other psychoactive substance dependence with psychoactive substance-induced mood disorder; G47.00 Insomnia, unspecified; K21.9 Gastro-esophageal reflux disease without esophagitis; H91.91 Unspecified hearing loss, right ear
CPT/HCPCS: 36415; 80053; 81003; 85027; 86593; 93005; 93010